=== PATIENT | female | born 1990 | race Caucasian/White ===

== ENCOUNTER → 2016-06-18 | Outpatient (CLI) | payer BC, OTHER ==
--- NOTE | 2016-06-18 09:36 | XR ---
EXAMINATION TYPE: XR Hip Complete LT DATE OF EXAM: 06/18/2016 9:32 AM COMPARISON: NONE HISTORY: Pain There is no evidence of erosive change or acute fracture. 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 Correlate for femoral acetabular impingement. Vascular calcifications in the pelvis and intrauterine device noted. Impression 1. Findings suggest chronic labral tear. Mild hypertrophic change of the head of the femur can be see n with femoral acetabular impingement.
--- NOTE | 2016-06-18 09:38 | XR ---
EXAM TYPE: LUMBAR SPINE X RAY SERIES COMPARISON: NONE HISTORY: Back pain FINDINGS: Alignment is anatomic. The pedicles are intact. The transverse processes are intact. There is no spondylolisthesis. Surgical clips in the gallbladder fossa noted. IMPRESSION: 1. No acute process.
== END | disposition home or self-care (01) ==
LOC: RADXRMAIN 09:09
PROVIDERS: ATTEND Family Medicine
DX: M25.852 Other specified joint disorders, left hip (principal); M54.5 Low back pain
CPT/HCPCS: 72100; 73502

== ENCOUNTER 2016-08-13 22:16 | Emergency (ER) | payer BC, OTHER ==
[2016-08-13 22:32] VITALS: BP 135/89; PULSE 108; RESP 20; TEMP 98.4
--- NOTE | 2016-08-13 22:48 | ED ---
ENT HPI - General Chief complaint: Dental/Oral Stated complaint: DENTAL PAIN Time Seen by Provider: 08/13/16 22:35 Source: patient, RN notes reviewed, old records reviewed Mode of arrival: ambulatory Limitations: no limitations - History of Present Illness Initial comments: Patient is a 26 year old female with chief complaint of broken right upper tooth. Patient reports she was eating a hard candy when it broke, 2 days ago. She states she is on a waiting list for seeing the dental clinic. She reports that the tooth pain is radiating around the gum line and to her entire upper teeth. Patient states pain is worse with eating cold foods. She denies any previous history of poor dentition or chipped teeth. She denies any trismus, nausea, vomiting, facial swellling. - Related Data Home Medications Medication Instructions Recorded Confirmed Dextroamphetamine/Amphetamine 20 mg PO DAILY 10/06/14 08/13/16 [Adderall] Escitalopram [Lexapro] 20 mg PO DAILY 03/23/16 08/13/16 Ferrous Sulfate [Iron (65 MG 325 mg PO DAILY 03/23/16 08/13/16 Elemental)] Previous Rx's Medication Instructions Recorded Doxycycline Hyclate 100 mg PO BID 14 Days 04/05/16 Acetaminophen-Codeine 300-30mg 1 tab PO Q4H PRN #20 tablet 08/13/16 [Tylenol #3] Penicillin V Potassium [Pen Vee K] 500 mg PO QID #40 tab 08/13/16 Allergies Allergy/AdvReac Type Severity Reaction Status Date / Time ketorolac [From Toradol] Allergy Rash/Hives Verified 04/22/16 15:04 lamotrigine [From Lamictal] Allergy Rash/Hives Verified 04/22/16 15:05 Review of Systems ROS Statement: Those systems with pertinent positive or pertinent negative responses have been documented in the HPI. ROS Other: All systems not noted in ROS Statement are negative. Past Medical History Past Medical History: Fibromyalgia, Thyroid Disorder Additional Past Medical History / Comment(s): HIP DYSPLASIA, ZHAO SYNDROME History of Any Multi-Drug Resistant Organisms: None Reported Past Surgical History: No Surgical Hx Reported, Cholecystectomy Additional Past Surgical History / Comment(s): Additional Medical Hx: Gallstones Past Psychological History: ADD/ADHD, Depression Smoking Status: Current some day smoker Past Alcohol Use History: None Reported Past Drug Use History: None Reported General Exam - General Exam Comments Initial Comments: Well appearing 26 year old female. No acute distress. Limitations: no limitations General appearance: alert, in no apparent distress Head exam: Present: atraumatic, normocephalic, normal inspection Eye exam: Present: normal appearance, PERRL, EOMI. Absent: scleral icterus, conjunctival injection, periorbital swelling ENT exam: Present: normal exam, normal oropharynx, mucous membranes moist, other (upper right molar chipped. no evidence of abscess. ) Neck exam: Present: normal inspection. Absent: tenderness, meningismus, lymphadenopathy Respiratory exam: Present: normal lung sounds bilaterally. Absent: respiratory distress, wheezes, rales, rhonchi, stridor Cardiovascular Exam: Present: regular rate, normal rhythm, normal heart sounds. Absent: systolic murmur, diastolic murmur, rubs, gallop, clicks GI/Abdominal exam: Present: soft, normal bowel sounds. Absent: distended, tenderness, guarding, rebound, rigid Extremities exam: Present: normal inspection, full ROM, normal capillary refill. Absent: tenderness, pedal edema, joint swelling, calf tenderness Back exam: Present: normal inspection Neurological exam: Present: alert, oriented X3, CN II-XII intact Psychiatric exam: Present: normal affect, normal mood Skin exam: Present: warm, dry, intact, normal color. Absent: rash Course Vital Signs 08/13/16 22:29 Temperature 98.4 F Pulse Rate 108 H Respiratory 20 Rate Blood Pressure 135/89 O2 Sat by Pulse 97 Oximetry Medical Decision Making - Medical Decision Making Patient is a 26 year old female with broken right upper molar for 2 days. She plans to see dental clinic but is unable to see them until September. Patient reports that she has pain radiating from the tooth to the entire upper teeth. Patient given tylenol 3, and pen v k starter pack. Patient will be given Rx for both. I advised patient to get in to a dental clinic sooner and to return if worsening signs or symptoms occur. Patient understands treatment plan and will comply. Disposition Clinical Impression: Pain, dental, Broken tooth Disposition: HOME SELF-CARE Condition: Good Instructions: Toothache (ED) Additional Instructions: Patient advised to follow-up with dental clinic. Completely anabiotic prescription. Take pain medications as prescribed. Return to the emergency department if any alarming signs or symptoms occur. [facility] [address], [place] [address] [phone] (existing clients only) For new clients: [phone] 1st consult: $50 (includes Xrays) Usually 30% less then private dentist for visits after. [employer] Have to pay $50 for Xrays anmd rest is covered. [phone] Prescriptions: Acetaminophen-Codeine 300-30mg [Tylenol #3] 1 tab PO Q4H PRN #20 tablet PRN Reason: Pain Penicillin V Potassium [Pen Vee K] 500 mg PO QID #40 tab Referrals: Demarcus Flores MD [Primary Care Provider] - 1-2 days Time of Disposition: 22:47
[2016-08-13] MEDS ORDERED: ACET/COD 300 MG/30 MG STARTER PACK 6 TAB BTL PO STA (23:05)
[2016-08-13] MEDS ORDERED: PENICILLIN VK 500MG STARTER 4 TAB BTL PO STA (23:05)
== END 2016-08-13 23:30 | disposition home or self-care (01) ==
LOC: EC 22:16
DX: S02.5XXA Fracture of tooth (traumatic), initial encounter for closed fracture (principal); F32.9 Major depressive disorder, single episode, unspecified; F90.9 Attention-deficit hyperactivity disorder, unspecified type; F17.200 Nicotine dependence, unspecified, uncomplicated; Z79.899 Other long term (current) drug therapy; Z88.6 Allergy status to analgesic agent; Z88.8 Allergy status to other drugs, medicaments and biological substances
CPT/HCPCS: 99283

== ENCOUNTER → 2016-12-21 | Outpatient (CLI) | payer SELFPAY | END | disposition home or self-care (01) | LOC: MMGSC 16:39 | PROVIDERS: ATTEND Family Medicine | DX: N93.9 Abnormal uterine and vaginal bleeding, unspecified (principal) | CPT/HCPCS: 87070; 87075; 87205 ==

== ENCOUNTER → 2017-03-04 | Outpatient (CLI) | payer SELFPAY ==
[2017-03-04 21:22] LABS: Basophils % (A) 1 %; CH 31.5; CHCM 33.2; Eosinophils # (A) 0.1 k/uL (0-0.7); Eosinophils % (A) 1 %; HCT 41.9 % (34.0-46.0); HDW 2.25; HGB 13.8 gm/dL (11.4-16.0); Luc % (Auto) 2; Lymphocytes # (A) 2.2 k/uL (1.0-4.8); Lymphocytes % (A) 33 %; MCH 31.3 pg (25.0-35.0); MCHC 32.9 g/dL (31.0-37.0); MCV 95.2 fL (80.0-100.0); Mean Platelet Volume 7.5; Monocytes # (A) 0.5 k/uL (0-1.0); Monocytes % (A) 7 %; Neutrophils # (A) 3.8 k/uL (1.3-7.7); Neutrophils % (A) 57 %; RDW 13.1 % (11.5-15.5); WBC 6.6 k/uL (3.8-10.6); WBC (Perox) 7.37
[2017-03-04 22:16] LABS: ALT 33 U/L (9-52); AST 27 U/L (14-36); Alkaline Phosphatase 59 U/L (38-126); Anion Gap 10 mmol/L; Blood Urea Nitrogen 11 mg/dL (7-17); Calcium 9.8 mg/dL (8.4-10.2); Carbon Dioxide 23 mmol/L (22-30); Chloride 105 mmol/L (98-107); Cholesterol 172 mg/dL (<200); Glucose 96 mg/dL (74-99); HDL Cholesterol 56 mg/dL (40-60); Non-African American GFR(MDRD) >60 (>60 ml/min/1.73 sqM); Sodium 138 mmol/L (137-145); Total Bilirubin 0.5 mg/dL (0.2-1.3); Total Protein 7.1 g/dL (6.3-8.2)
== END | disposition home or self-care (01) ==
LOC: MMGSC 10:19
PROVIDERS: ATTEND Family Medicine
DX: Z00.00 Encounter for general adult medical examination without abnormal findings (principal); B76.9 Hookworm disease, unspecified
CPT/HCPCS: 36415; 80053; 80061; 84439; 84443; 85025

== ENCOUNTER → 2017-05-27 | Outpatient (CLI) | payer OTHER ==
[2017-05-27 18:29] LABS: Basophils % (A) 0 %; CH 28.3; CHCM 31.1; Eosinophils # (A) 0.1 k/uL (0-0.7); Eosinophils % (A) 2 %; HCT 36.8 % (34.0-46.0); HGB 11.2 gm/dL (11.4-16.0); Hypochromasia Moderate; Luc # (Auto) 0.11; Luc % (Auto) 2; Lymphocytes # (A) 2.3 k/uL (1.0-4.8); Lymphocytes % (A) 34 %; MCHC 30.5 g/dL (31.0-37.0); MCV 91.6 fL (80.0-100.0); Mean Platelet Volume 7.5; Monocytes # (A) 0.5 k/uL (0-1.0); Monocytes % (A) 7 %; Neutrophils # (A) 3.8 k/uL (1.3-7.7); Neutrophils % (A) 56 %; RBC 4.02 m/uL (3.80-5.40); RDW 13.5 % (11.5-15.5); WBC 6.7 k/uL (3.8-10.6); WBC (Perox) 7.25
[2017-05-28 01:13] LABS: Iron Saturation 8.36 (12.00-45.00)
== END ==
LOC: MMGSC 11:43
PROVIDERS: ATTEND Family Medicine
DX: D64.9 Anemia, unspecified (principal)
CPT/HCPCS: 36415; 82728; 83540; 83550; 85025

== ENCOUNTER → 2017-10-05 | Outpatient (CLI) | payer OTHER ==
[2017-10-05 12:19] VITALS: BP 120/73; PULSE 83; RESP 18; TEMP 99.2
--- NOTE | 2017-10-05 21:27 | P.PAINCN ---
History of Present Illness - Reason for Consult Consult date: 10/05/17 - History of Present Illness This is 27 years old female with a chronic history of severe bilateral hip pain , but this more intense in the right side, she was diagnosed with bilateral hip dysplasia, which required her to have physical therapy and later on she had surgery on her right hip, which was done at [facility], more than a year ago, and she was told by her orthopedic surgeon and that she needs a hip replacement, but she is too young to have the hip replacement at this age, and areas can be done , when she is 35 years old, currently she is complaining of severe pain in the right hip which is increased with any activity or walking and bending sitting and standing, all these activities will increase her pain her pain level baselining is 5-6/10 increased with any activity to 8/10, she denies any fever or night sweats she denies any motor or sensory deficit, she denies any change in the bowel movement or urination,, she had pain management interventions done at [facility], which was complicated by motor weakness after the procedure and increased pain after the procedure, and she is currently trying to find if there is any interventional pain management option can help to improve her pain Past Medical History Past Medical History: Fibromyalgia, Thyroid Disorder Additional Past Medical History / Comment(s): HIP DYSPLASIA, ZHAO SYNDROME History of Any Multi-Drug Resistant Organisms: None Reported Past Surgical History: Orthopedic Surgery Additional Past Surgical History / Comment(s): kidney stone with stent. Additional Medical Hx: Gallstones/TRISH RT HIP 04/23 Past Psychological History: ADD/ADHD, Depression Smoking Status: Current some day smoker Past Alcohol Use History: None Reported Past Drug Use History: None Reported Medications and Allergies Home Medications Medication Instructions Recorded Confirmed Type Dextroamphetamine/Amphetamine 20 mg PO BID 10/06/14 10/05/17 History [Adderall] Escitalopram [Lexapro] 10 mg PO DAILY 03/23/16 10/05/17 History Ferrous Sulfate [Iron (65 MG 325 mg PO HS 03/23/16 10/05/17 History Elemental)] Hydrocodone/Acetaminophen [Fairchild 1 tab PO QID PRN 05/30/17 10/05/17 History 10-325] Celecoxib [CeleBREX] 100 mg PO BID #60 cap 10/05/17 Rx Gabapentin [Neurontin] 300 mg PO HS 10/05/17 10/05/17 History Multivitamin [Multivitamins Adult 1 tab PO DAILY 10/05/17 10/05/17 History Gummies] S-Adenosylmethionine Sul Tosyl 200 mg PO DAILY 10/05/17 10/05/17 History [Zach-E] Allergies Allergy/AdvReac Type Severity Reaction Status Date / Time codeine Allergy Rash/Hives Verified 10/05/17 12:08 ketorolac [From Toradol] Allergy Rash/Hives Verified 05/30/17 22:02 lamotrigine [From Lamictal] Allergy Rash/Hives Verified 05/30/17 22:02 Physical Exam Vitals: Vital Signs Temp Pulse Resp BP Pulse Ox 10/05/17 12:08 99.2 F 83 18 120/73 98 Intake and Output 10/05/17 10/05/17 10/05/17 06:59 14:59 22:59 Other: Weight 58.967 kg Social history : smoker , NO ETOH , NO Illegal drugs use . Review of Systems : 1- Constitutional : no chills , no fever , no night sweats , 2- Ears : no ear discharge , no change in hearing 3-Nose, Mouth ,Throat ; no bleeding gums, no sore throat , no epistaxis , 4-Cardiovascular : Denies chest pain, , no orthopnea , no palpitation 5-Respiratory : Denies cough , no dyspnea , no hemoptysis 6-Gastrointestinal :, no change in bowel habits , no coffee- ground emesis . 7-Genitourinary : No hematuria , no discharge , no incontinence, 8-Musculoskeletal : No gait dysfunction , report low back pain , 9- Neurological : no ataxia , no tremor , no sezure , 10-Psychatric , no suicidal ideation no hallucination 11- Endocrine : no cold intolerence , no polyuria , no polydypsia , 12-Hematologic : no easy bleeding , no easy brusing , 13-Allergic / immunology : no angioedema , no wheezing ,no allergic rhinitis 14-Integumentary : no brttle nails , no change hair / nails , no foot/leg ulcers . Physical Examinations : 1-Constitutional : Cooperative , not in acute distress . 2-HEENT : nech ; supple , no Lymphadenopathy , no Thyromegaly , :eyes , no icterus, no photophobia . ENT : , normal oropharynx , no Thrush 3- Respiratory : Chest clear to auscultations Bilaterally , no wheezing . 4- Cardiovascular : regular rate and rhythem , S1 , S2 , no S3 , no S4. 5- Gastrointestinal: abdomen soft no tenderness , no organomegally . 6- Genitourinary : Defferred . 7-Integumentary : No cellulitis , no ulcers , normal skin turgor , no cyanotic . 8- neurologic : Cranial nerve II to XII intact , no focal neurological deffecit 9-psychatric : alert , oriented X 3 , appropriate affect , intact judgment and insight . 10-Lymphatic : no Lymphadenopathy. 11- musculoskeltal: abnormal gait Lumber spine moter stegnth lower extremities ,thigh and legs 5/5 Right side , 5/5 Left side deep tendon reflexes : normal Knee Jerk , normal ankle Jerk positive lumber facet Loading Test Range of motion of the lumbar spine Flexion 60 degrees, extension 10 degrees strait leg raising test , positive at 30 degree Fabere test positive RT and positive LT . Hip joint= flexion and extension and rotation of the femur the hip joint area associated with severe pain at the hip joint more severe at the right side Results Comments: MRI of the lumbar spine lumbar disc protrusion and lumbar facet arthropathy. diagnostic study of the hip joint , chronic labral tear, and hypertrophic changes of the femur head Assessment and Plan Plan: Assessment and plan= chronic bilateral hip pain and more severe on the right side secondary to hip dysplasia. Patient continued to have pain after right hip surgery, Patient will be good candidate to have right hip injection will do with twice, if she had a good resulte, then we will consider radiofrequency of the right hip joint , recommend discontinue Motrin, patient currently taking 800 mg every 6 hours, it will be safer on her stomach to change it to Celebrex 100 milligrams twice a day Time with Patient: Greater than 30 PQRS Measure Charge Sheet Measure #130: Documentation of Current Meds in Medical Chart: Patient's medications documented in chart Measure #226: Tobacco Use: Screen & Cessation Intervention: Pt screened for tobacco use AND intervention given Measure #111: Pneumonia Vaccination: Pneumococcal vaccine NOT administered or previously given Measure #47: Advance Care Plan: Advance care planning discussed & documented, plan or surrogate given Measure #412: Opioid Treatment Agreement: No documentation of signed opioid treatment agreement Measure #408: Opioid Therapy Follow-up Evaluation: Patient had NO f/u eval minimum every 3 months during opioid therapy Measure #317: Preventitive Care & Scrn High Bld Press & F/U: Normal blood pressure, f/u not required Measure #128: Body Mass Index (BMI) Screening & Follow-up: BMI documented within normal parameters Measure #131: Pain Assessment & Follow-up: Pain positive & plan documented, Follow-up scheduled Measure #431: Unhealthy Alcohol Use Preventative Care & Scrn: Patient not identified as an unhealthy alcohol user PQRS Narrative: Smoking Status Current some day smoker Do You Want the Pneumonia No Vaccine AT THIS TIME? Blood Pressure 120/73 Pain Intensity [Bilateral Hip] 3 Hx Alcohol Use (MH) No Home Medications: Ambulatory Orders Dextroamphetamine/Amphetamine [Adderall] 20 mg PO BID 10/06/14 Escitalopram [Lexapro] 10 mg PO DAILY 03/23/16 Ferrous Sulfate [Iron (65 MG Elemental)] 325 mg PO HS 03/23/16 Hydrocodone/Acetaminophen [Fairchild 10-325] 1 tab PO QID PRN 05/30/17 Celecoxib [CeleBREX] 100 mg PO BID #60 cap 10/05/17 Gabapentin [Neurontin] 300 mg PO HS 10/05/17 Multivitamin [Multivitamins Adult Gummies] 1 tab PO DAILY 10/05/17 S-Adenosylmethionine Sul Tosyl [Zach-E] 200 mg PO DAILY 10/05/17
== END | disposition home or self-care (01) ==
LOC: PNWHC3 11:54
PROVIDERS: ATTEND Specialist
DX: G89.28 Other chronic postprocedural pain (principal); M25.552 Pain in left hip; M25.551 Pain in right hip; Q65.89 Other specified congenital deformities of hip; M79.7 Fibromyalgia; I49.8 Other specified cardiac arrhythmias; F90.1 Attention-deficit hyperactivity disorder, predominantly hyperactive type; F17.200 Nicotine dependence, unspecified, uncomplicated; Z79.891 Long term (current) use of opiate analgesic; Z79.899 Other long term (current) drug therapy; Z88.5 Allergy status to narcotic agent; Z88.6 Allergy status to analgesic agent; Z79.1 Long term (current) use of non-steroidal anti-inflammatories (NSAID); Z98.890 Other specified postprocedural states
CPT/HCPCS: 99211

== ENCOUNTER 2017-11-17 23:10 | Emergency (ER) | payer OTHER ==
[2017-11-18] MEDS ORDERED: HYDROcodone/APAP 5-325MG 1 EACH TAB PO STA (00:11)
--- NOTE | 2017-11-18 00:25 | ED ---
Lower Extremity Injury HPI - General Chief Complaint: Extremity Injury, Lower Stated Complaint: Fall, hip pain Time Seen by Provider: 11/17/17 23:43 Source: patient Mode of arrival: wheelchair Limitations: no limitations - History of Present Illness Initial Comments: 27-year-old female patient with past medical history significant for hip dysplasia with surgery approximately one year ago to the right hip presents to the emergency department today for evaluation of right hip pain after a fall. Patient states that she got up from the couch and tripped over a ball and fell landing on the right hip. She denies hitting her head or losing consciousness. She states that since the fall she has been having significant pain to the hip and has been unable to ambulate. When she attempts to bear weight pain will shoot down to her knee. Patient states that the pain also radiates into her back and groin. She denies any numbness or tingling to the extremity. She denies any loss of bowel or bladder control. She denies any chance of . Patient denies any headache, neck pain, chest pain, shortness of breath, dizziness, weakness, abdominal pain, nausea, vomiting, or difficulties with bowel movements or urination. - Related Data Home Medications Medication Instructions Recorded Confirmed Ferrous Sulfate [Iron (65 MG 325 mg PO HS 03/23/16 11/17/17 Elemental)] Multivitamin [Multivitamins Adult 1 tab PO DAILY 10/05/17 11/17/17 Gummies] Ibuprofen 800 mg PO TID 11/17/17 11/17/17 OXcarbazepine [Trileptal] 300 mg PO BID 11/17/17 11/17/17 Vortioxetine Hydrobromide 20 mg PO DAILY 11/17/17 11/17/17 [Trintellix] Previous Rx's Medication Instructions Recorded Hydrocodone/Acetaminophen [Buckingham 1 tab PO Q6HR PRN #12 tab 11/18/17 5-325] Allergies Allergy/AdvReac Type Severity Reaction Status Date / Time codeine Allergy Rash/Hives Verified 10/05/17 12:08 ketorolac [From Toradol] Allergy Rash/Hives Verified 05/30/17 22:02 lamotrigine [From Lamictal] Allergy Rash/Hives Verified 05/30/17 22:02 Review of Systems ROS Statement: Those systems with pertinent positive or pertinent negative responses have been documented in the HPI. ROS Other: All systems not noted in ROS Statement are negative. Past Medical History Past Medical History: Fibromyalgia, Thyroid Disorder Additional Past Medical History / Comment(s): HIP DYSPLASIA, ZHAO SYNDROME History of Any Multi-Drug Resistant Organisms: None Reported Past Surgical History: Orthopedic Surgery Additional Past Surgical History / Comment(s): kidney stone with stent. Additional Medical Hx: Gallstones/TRISH RT HIP 04/23 Past Psychological History: ADD/ADHD, Depression Smoking Status: Current some day smoker Past Alcohol Use History: None Reported Past Drug Use History: None Reported General Exam Limitations: no limitations General appearance: alert, in no apparent distress, other (This is a well- developed, well-nourished adult female patient in no acute distress. Vital signs upon presentation are temperature 98.6F, pulse 86, respirations 18, blood pressure 127/83, pulse ox 98% on room air.) Eye exam: Present: normal appearance, PERRL, EOMI. Absent: scleral icterus, conjunctival injection, periorbital swelling Neck exam: Present: normal inspection, full ROM, other (Nontender, no step-off, no deformity to firm midline palpation of the posterior cervical spine. Full range of motion without pain or limitation.). Absent: tenderness, meningismus, lymphadenopathy Respiratory exam: Present: normal lung sounds bilaterally. Absent: respiratory distress, wheezes, rales, rhonchi, stridor Cardiovascular Exam: Present: regular rate, normal rhythm, normal heart sounds. Absent: systolic murmur, diastolic murmur, rubs, gallop, clicks GI/Abdominal exam: Present: soft, normal bowel sounds. Absent: distended, tenderness, guarding, rebound, rigid Extremities exam: Present: normal inspection, full ROM, tenderness (Tenderness over the right hip and right groin), normal capillary refill, other (Skin to the right lower extremity is pink, warm, and dry. Cap refills less than 3 seconds. Pedal pulses 2+ and equal bilaterally.). Absent: pedal edema, joint swelling, calf tenderness Back exam: Present: normal inspection. Absent: vertebral tenderness Neurological exam: Present: alert, oriented X3, CN II-XII intact Psychiatric exam: Present: normal affect, normal mood Skin exam: Present: warm, dry, intact, normal color. Absent: rash Course Vital Signs 11/17/17 11/18/17 23:27 01:44 Temperature 98.6 F 98.2 F Pulse Rate 86 71 Respiratory 18 16 Rate Blood Pressure 127/83 126/58 O2 Sat by Pulse 98 100 Oximetry Medical Decision Making - Medical Decision Making 27-year-old female patient presents the emergency department today for evaluation of right hip pain after experiencing a fall. Physical examination is relatively unremarkable she does have some groin and right lateral hip tenderness. Her vascular status is intact. She is not experiencing any loss of bowel or bladder control or numbness or tingling to the lower extremities. X -ray of the right hip and pelvis were obtained and showed no acute findings. X- ray of the lumbosacral spine was obtained and showed no acute findings. Patient will be given pain medication and a prescription for crutches. It is likely her symptoms are caused from a hip strain as she does report a twisting motion during the fall. We will have her follow-up with her orthopedic surgeon at [facility] for further evaluation. Return parameters discussed in detail. She verbalizes understanding and agrees with this plan. - Radiology Data Radiology results: report reviewed, image reviewed 3 views of the hip and one view of the elbows is obtained. The pelvic ring is intact. There are multiple screws fixing old osteotomy of the right acetabulum. The proximal femurs are intact. Sacroiliac joints appear normal. There are numerous phleboliths in the pelvis. Impression by Dr. Dumont shows previous surgery on the right acetabulum and right iliac bone. Normal hip joint spaces. No fracture. No change compared to old exam. 5 views of the lumbosacral spine are obtained. Vertebra abnormal spacing alignment. Posterior elements are intact. There is no compression fracture. Sacroiliac joints appear normal. Impression by Dr. Dumont shows normal lumbar spine. No change. Disposition Clinical Impression: Strain of right hip Disposition: HOME SELF-CARE Condition: Good Instructions: Hip Pain (ED), Hip Contusion (ED) Additional Instructions: Rest and apply ice to the right hip. Follow-up with your orthopedic surgeon as soon as possible. Use crutches until you're able to bear weight. Return here immediately for any new, worsening, or concerning symptoms. Prescriptions: Hydrocodone/Acetaminophen [Buckingham 5-325] 1 tab PO Q6HR PRN #12 tab PRN Reason: Pain Is patient prescribed a controlled substance at d/c from ED?: No Referrals: Mayela Erwin MD [Primary Care Provider] - 1-2 days Time of Disposition: 01:24
--- NOTE | 2017-11-18 00:49 | XR ---
EXAMINATION TYPE: XR Hip RT and AP Pelvis DATE OF EXAM: 11/18/2017 COMPARISON: 05/30/2017 HISTORY: Right hip pain TECHNIQUE: 3 views of the pelvis and right hip. FINDINGS: The pelvic ring is intact. There are multiple screws fixing old osteotomy of the right acetabulum. Th e proximal femurs are intact. Sacroiliac joints appear normal. There are numerous phleboliths in the pelvis. IMPRESSION: Previous surgery on the right acetabulum and right iliac bone. Normal hip joint spaces. No fracture. No change compared to old exam.
--- NOTE | 2017-11-18 00:51 | XR ---
EXAMINATION TYPE: XR lumbosacral spine min 4V DATE OF EXAM: 11/18/2017 COMPARISON: 06/18/2016 HISTORY: Back pain TECHNIQUE: 5 views FINDINGS: Vertebra have normal spacing and alignment. Posterior elements are intact. There is no comp ression fracture. Sacroiliac joints appear normal. IMPRESSION: Normal lumbar spine. No change.
[2017-11-18 01:46] VITALS: BP 126/58; PULSE 71; RESP 16; TEMP 98.2
== END 2017-11-18 01:46 | disposition home or self-care (01) ==
LOC: EC 23:10
DX: S76.011A Strain of muscle, fascia and tendon of right hip, initial encounter (principal); M79.7 Fibromyalgia; F32.9 Major depressive disorder, single episode, unspecified; F17.200 Nicotine dependence, unspecified, uncomplicated; Z88.5 Allergy status to narcotic agent; Z88.8 Allergy status to other drugs, medicaments and biological substances; Z79.1 Long term (current) use of non-steroidal anti-inflammatories (NSAID); Z79.899 Other long term (current) drug therapy; W01.198A Fall on same level from slipping, tripping and stumbling with subsequent striking against other object, initial encounter
CPT/HCPCS: 72110; 73502; 99283

== ENCOUNTER 2018-02-19 18:34 | Emergency (ER) | payer OTHER ==
--- NOTE | 2018-02-19 19:34 | ED ---
General Adult HPI - General Chief complaint: Chest Pain Stated complaint: CHEST PAIN, ABDOMINAL PAIN Time Seen by Provider: 02/19/18 18:54 Source: patient, EMS Mode of arrival: EMS Limitations: no limitations - History of Present Illness Initial comments: Patient is a 27-year-old female who presents with a chief complaint of cough and chest pain. Patient has been dealing with a cold and was recently diagnosed with bronchitis for which she is taking azithromycin. Patient says that he took her azithromycin today and now she is having ALLERGIC reaction because she started having chest palpitations and sharp pains. She went to urgent care where an EKG was performed. They stated the EKG was not normal and that she should go to the emergency department for further evaluation. In the emergency department patient states that she also gets dizzy when she sits or stands up. She has a medical history of hypokalemia for which she has been taking potassium supplementation for. Patient denies any long trips or periods of inactivity, she denies the use of control. She denies a family or personal history of blood clots. - Related Data Home Medications Medication Instructions Recorded Confirmed Ferrous Sulfate [Iron (65 MG 325 mg PO HS 03/23/16 11/17/17 Elemental)] Multivitamin [Multivitamins Adult 1 tab PO DAILY 10/05/17 11/17/17 Gummies] Ibuprofen 800 mg PO TID 11/17/17 11/17/17 OXcarbazepine [Trileptal] 300 mg PO BID 11/17/17 11/17/17 Vortioxetine Hydrobromide 20 mg PO DAILY 11/17/17 11/17/17 [Trintellix] Previous Rx's Medication Instructions Recorded Hydrocodone/Acetaminophen [[place] 1 tab PO Q6HR PRN #12 tab 11/18/17 5-325] Doxycycline Monohydrate 100 mg PO BID #10 cap 02/19/18 [Vibramycin] Allergies Allergy/AdvReac Type Severity Reaction Status Date / Time azithromycin Allergy Chest Pain Verified 02/19/18 18:41 codeine Allergy Rash/Hives Verified 10/05/17 12:08 ketorolac [From Toradol] Allergy Rash/Hives Verified 05/30/17 22:02 lamotrigine [From Lamictal] Allergy Rash/Hives Verified 05/30/17 22:02 Review of Systems ROS Statement: Those systems with pertinent positive or pertinent negative responses have been documented in the HPI. ROS Other: All systems not noted in ROS Statement are negative. Respiratory: Reports: cough Cardiovascular: Reports: chest pain, palpitations Past Medical History Past Medical History: Fibromyalgia, Thyroid Disorder Additional Past Medical History / Comment(s): HIP DYSPLASIA, ZHAO SYNDROME History of Any Multi-Drug Resistant Organisms: None Reported Past Surgical History: Orthopedic Surgery Additional Past Surgical History / Comment(s): kidney stone with stent. Additional Medical Hx: Gallstones/TRISH RT HIP 04/23 Past Psychological History: ADD/ADHD, Depression Smoking Status: Current some day smoker Past Alcohol Use History: None Reported Past Drug Use History: None Reported General Exam Limitations: no limitations General appearance: alert, in no apparent distress Head exam: Present: atraumatic, normocephalic Eye exam: Present: normal appearance, PERRL ENT exam: Present: normal exam, mucous membranes moist Neck exam: Present: normal inspection Respiratory exam: Present: normal lung sounds bilaterally. Absent: respiratory distress, wheezes Cardiovascular Exam: Present: regular rate, normal rhythm GI/Abdominal exam: Present: soft, tenderness (tenderness to palpation in the epigastric region ). Absent: distended Rectal exam: Present: deferred Extremities exam: Present: normal inspection Back exam: Present: normal inspection Neurological exam: Present: alert, oriented X3 Psychiatric exam: Present: normal affect, normal mood Skin exam: Present: warm, dry, intact Course Vital Signs 02/19/18 02/19/18 18:42 18:51 Temperature 98.9 F 98.8 F Pulse Rate 63 77 Respiratory 18 18 Rate Blood Pressure 102/57 102/57 O2 Sat by Pulse 100 100 Oximetry Medical Decision Making - Medical Decision Making Patient presents with a chief complaint of chest pain, cough, and epigastric pain. On initial evaluation, vital signs are stable, patient is in mild distress likely secondary to being startled when evaluated in urgent care. She was told that she had an abnormal EKG and that "she wasn't having a heart attack yet." Initial EKG performed at 1844 shows sinus rhythm with a rate of 90 bpm. There appears to be PACs present however there is concern as the QRS complexes are of varying heights. Bedside ultrasound of the heart shows no evidence of pericardial effusion. Global function appears grossly normal. There is no dilation of the right ventricle. Ejection fraction is estimated to be greater than 50%. Patient to be evaluated with basic labs including liver profile and lipase. She'll have cardiac enzymes and will be sent for a computed tomography scan of the chest with IV contrast. 9:27 PM Lab evaluation of this patient is unremarkable. Computed tomography scan of the chest does not show any acute process, further there is no evidence of pulmonary embolism. On reevaluation, the patient remains comfortable. She was given a liter of fluids and states that she feels better. Electrolytes are within normal limits, labs are otherwise unremarkable. At this time, patient will be switched to doxycycline for treatment of bronchitis and instructed to follow-up with primary care in 1-2 days. She was instructed to return to the emergency department if symptoms worsen or change. - Lab Data Result diagrams: 02/19/18 19:00 02/19/18 19:00 Lab Results 02/19/18 02/19/18 02/19/18 Range/Units 19:00 19:00 19:00 WBC 7.4 (3.8-10.6) k/uL RBC 3.91 (3.80-5.40) m/uL Hgb 11.8 (11.4-16.0) gm/dL Hct 35.7 (34.0-46.0) % MCV 91.3 (80.0-100.0) fL MCH 30.1 (25.0-35.0) pg MCHC 33.0 (31.0-37.0) g/dL RDW 12.2 (11.5-15.5) % Plt Count 257 (150-450) k/uL Neutrophils % 69 % Lymphocytes % 24 % Monocytes % 5 % Eosinophils % 1 % Basophils % 0 % Neutrophils # 5.1 (1.3-7.7) k/uL Lymphocytes # 1.8 (1.0-4.8) k/uL Monocytes # 0.4 (0-1.0) k/uL Eosinophils # 0.1 (0-0.7) k/uL Basophils # 0.0 (0-0.2) k/uL Sodium 139 (137-145) mmol/L Potassium 3.8 (3.5-5.1) mmol/L Chloride 108 H (98-107) mmol/L Carbon Dioxide 22 (22-30) mmol/L Anion Gap 9 mmol/L BUN 4 L (7-17) mg/dL Creatinine 0.45 L (0.52-1.04) mg/dL Est GFR (CKD-EPI)AfAm >90 (>60 ml/min/1.73 sqM) Est GFR (CKD-EPI)NonAf >90 (>60 ml/min/1.73 sqM) Glucose 86 (74-99) mg/dL Calcium 9.3 (8.4-10.2) mg/dL Magnesium 1.7 (1.6-2.3) mg/dL Total Bilirubin 0.2 (0.2-1.3) mg/dL AST 18 (14-36) U/L ALT 25 (9-52) U/L Alkaline Phosphatase 48 (38-126) U/L Troponin I <0.012 (0.000-0.034) ng/mL Total Protein 6.1 L (6.3-8.2) g/dL Albumin 3.7 (3.5-5.0) g/dL Lipase 148 (23-300) U/L HCG, Qual Detected Disposition Clinical Impression: Palpitations, Bronchitis Disposition: HOME SELF-CARE Condition: Good Instructions: Heart Palpitations (ED) Is patient prescribed a controlled substance at d/c from ED?: No Referrals: None,Stated [Primary Care Provider] - 1-2 days
[2018-02-19 19:52] LABS: Basophils % (A) 0 %; Eosinophils # (A) 0.1 k/uL (0-0.7); Eosinophils % (A) 1 %; HCT 35.7 % (34.0-46.0); HGB 11.8 gm/dL (11.4-16.0); Lymphocytes # (A) 1.8 k/uL (1.0-4.8); Lymphocytes % (A) 24 %; MCH 30.1 pg (25.0-35.0); MCV 91.3 fL (80.0-100.0); Mean Platelet Volume 6.6; Monocytes # (A) 0.4 k/uL (0-1.0); Monocytes % (A) 5 %; Neutrophils # (A) 5.1 k/uL (1.3-7.7); Neutrophils % (A) 69 %; Platelet Count 257 k/uL (150-450); RBC 3.91 m/uL (3.80-5.40); RDW 12.2 % (11.5-15.5); WBC 7.4 k/uL (3.8-10.6)
[2018-02-19 19:57] LABS: HCG,Qualitative Serum Detected
[2018-02-19 20:01] LABS: ALT 25 U/L (9-52); AST 18 U/L (14-36); Albumin 3.7 g/dL (3.5-5.0); Alkaline Phosphatase 48 U/L (38-126); Anion Gap 9 mmol/L; Blood Urea Nitrogen 4 mg/dL (7-17); Calcium 9.3 mg/dL (8.4-10.2); Carbon Dioxide 22 mmol/L (22-30); Chloride 108 mmol/L (98-107); Glucose 86 mg/dL (74-99); Lipase 148 U/L (23-300); Magnesium 1.7 mg/dL (1.6-2.3); Potassium 3.8 mmol/L (3.5-5.1); Sodium 139 mmol/L (137-145); Total Bilirubin 0.2 mg/dL (0.2-1.3); Total Protein 6.1 g/dL (6.3-8.2)
[2018-02-19] MEDS ORDERED: SODIUM CHLORIDE 0.9% 1,000 ML IV ONE (20:21)
--- NOTE | 2018-02-19 20:22 | CT ---
EXAMINATION TYPE: CT angio chest DATE OF EXAM: 02/19/2018 8:03 PM COMPARISON: None HISTORY: chest pain CT DLP: 158.6 mGycm Automated exposure control for dose reduction was used. CONTRAST: CTA scan of the thorax is performed with IV Contrast, patient injected with 65mL mL of Isovue 370, pu lmonary embolism protocol. There are 3-D post processed images.. FINDINGS: The lungs are clear of infiltrate. There are small emphysematous blebs at the lung apices. There is n o evidence of a pulmonary mass. There is no pleural effusion. Heart size is normal. There is no peric ardial effusion. There is normal contrast opacification of the pulmonary arteries. I see no filling d efect. There is no mediastinal adenopathy. There are no hilar masses. The bony thorax is intact. Pulm onary vascularity is normal. Thoracic aorta appears normal. There is no evidence of aneurysm or dissection. IMPRESSION: NORMAL CT ANGIOGRAM OF THE CHEST. NO EVIDENCE OF PULMONARY EMBOLISM.
[2018-02-19 22:06] VITALS: BP 111/58; PULSE 81; RESP 16; TEMP 99.3
== END 2018-02-19 22:13 | disposition home or self-care (01) ==
LOC: EC 18:34
DX: J40 Bronchitis, not specified as acute or chronic (principal); R00.2 Palpitations; F32.9 Major depressive disorder, single episode, unspecified; F17.200 Nicotine dependence, unspecified, uncomplicated; Z79.899 Other long term (current) drug therapy; Z88.1 Allergy status to other antibiotic agents; Z88.5 Allergy status to narcotic agent; Z88.6 Allergy status to analgesic agent; Z88.8 Allergy status to other drugs, medicaments and biological substances
CPT/HCPCS: 36415; 71275; 80053; 83690; 83735; 84484; 84703; 85025; 93005; 96360; 99285

== ENCOUNTER → 2018-10-24 | Outpatient (CLI) | payer OTHER ==
--- NOTE | 2018-10-24 15:51 | US ---
EXAMINATION TYPE: US kidneys/renal and bladder DATE OF EXAM: 10/24/2018 COMPARISON: US CLINICAL HISTORY: N20.0 Calculus of kidney. Left flank pain and low grade fever post laparoscopy for uterine adenomyosis. EXAM MEASUREMENTS: Right Kidney: 11.6 x 6.9 x 4.3 cm Left Kidney: 11.2 x 5.4 x 5.7 cm Post Void Residual Volume: 31.6 mL Right Kidney: inferior cortical cyst = 0.6 x 0.6 x 0.4cm . No hydronephrosis or nephrolithiasis. Left Kidney: very small hyperechoic focus (calcification) noted mid pole lateral cortex = 0.4 x 0.2 x 0.2cm . No hydronephrosis or nephrolithiasis. Bladder: wnl Bilateral Jets seen: yes Normal Post Void Residual: yes IMPRESSION: 1. Nonobstructing left renal calculus. 2. 6 mm hypoechoic nodule right kidney too small to characterize.
== END | disposition home or self-care (01) ==
LOC: RADUSWWP 14:52
PROVIDERS: ATTEND Urology
DX: N20.0 Calculus of kidney (principal); N28.89 Other specified disorders of kidney and ureter
CPT/HCPCS: 76770

== ENCOUNTER → 2019-06-27 | Outpatient (CLI) | payer OTHER ==
--- NOTE | 2019-06-27 16:05 | US ---
EXAMINATION TYPE: US thyroid st tissue head/neck DATE OF EXAM: 06/27/2019 COMPARISON: US May 10 2012 CLINICAL HISTORY: E05.90 thyrotoxicosis. Follow up thyroid nodules, difficulty swallowing GLAND SIZE: Right Lobe: 5.8 x 1.7 x 1.6 cm Overall Parenchyma: mildly heterogeneous Left Lobe: 5.6 x 1.6 x 1.3 cm Overall Parenchyma: mildly heterogeneous Isthmus Thickness: 0.5 cm NODULES RIGHT: # of nodules measured on right: 0 LEFT: # of nodules measured on left: 0 ISTHMUS: # of nodules measured in the isthmus: 1 1. 0.5 X 0.4 x 0.5 cm hypoechoic mixed nodule at the mid isthmus with well-defined margins. This no dule is wider than tall and shows no intranodular vascularity. Prior size: 0.7 x 0.4 x 0.4 cm Bilateral neck scanned, no evidence of lymphadenopathy. Enlarged mildly heterogeneous gland with small isthmus nodules described above. Heterogeneous thyroid slightly prominent in size with fairly stable subcentimeter isthmus nodule. IMPRESSION: Overall stable findings, no new greater than 1 cm thyroid nodule.
== END | disposition home or self-care (01) ==
LOC: RADUSWWP 15:04
PROVIDERS: ATTEND Family Medicine
DX: E04.1 Nontoxic single thyroid nodule (principal); E05.90 Thyrotoxicosis, unspecified without thyrotoxic crisis or storm
CPT/HCPCS: 76536

== ENCOUNTER 2021-05-18 20:53 | Emergency (ER) | payer OTHER ==
[2021-05-18 21:47] VITALS: RESP 20; TEMP 98.8
[2021-05-18] MEDS ORDERED: SODIUM CHLORIDE 0.9% 50 ML IVPB ONE (22:45)
[2021-05-18] MEDS ORDERED: BAMLANIVIMAB (EUA) 700 MG, ETESEVIMAB (EUA) 1,400 MG in SODIUM CHLORIDE 0.9% 50 ML IVPB ONE (23:00)
--- NOTE | 2021-05-18 23:23 | ED ---
URI HPI - General Chief Complaint: Upper Respiratory Infection Stated Complaint: covid positive Time Seen by Provider: 05/18/21 22:04 Source: patient Mode of arrival: ambulatory Limitations: no limitations - History of Present Illness MD Complaint: cough, nasal congestion -: days(s) Severity: mild Consistency: constant Improves With: nothing Worsens With: nothing Associated Symptoms: fever, chills, myalgias, headache, nasal congestion, cough - Related Data Home Medications Medication Instructions Recorded Confirmed Ferrous Sulfate [Iron (65 MG 325 mg PO HS 03/23/16 11/17/17 Elemental)] Multivitamin [Multivitamins Adult 1 tab PO DAILY 10/05/17 11/17/17 Gummies] Ibuprofen 800 mg PO TID 11/17/17 11/17/17 OXcarbazepine [Trileptal] 300 mg PO BID 11/17/17 11/17/17 Vortioxetine Hydrobromide 20 mg PO DAILY 11/17/17 11/17/17 [Trintellix] Previous Rx's Medication Instructions Recorded Hydrocodone/Acetaminophen [[place] 1 tab PO Q6HR PRN #12 tab 11/18/17 5-325] Doxycycline [Vibramycin] 100 mg PO BID #10 cap 02/19/18 Allergies Allergy/AdvReac Type Severity Reaction Status Date / Time azithromycin Allergy Chest Pain Verified 05/18/21 21:44 codeine Allergy Rash/Hives Verified 05/18/21 21:44 ketorolac [From Toradol] Allergy Rash/Hives Verified 05/18/21 21:44 lamotrigine [From Lamictal] Allergy Rash/Hives Verified 05/18/21 21:44 Review of Systems ROS Statement: Those systems with pertinent positive or pertinent negative responses have been documented in the HPI. ROS Other: All systems not noted in ROS Statement are negative. Constitutional: Reports: fever, chills. Denies: weakness Respiratory: Reports: cough. Denies: dyspnea, wheezes, hemoptysis Cardiovascular: Denies: chest pain, palpitations, orthopnea Gastrointestinal: Denies: abdominal pain, vomiting, diarrhea Genitourinary: Denies: dysuria, hematuria Musculoskeletal: Denies: back pain Skin: Denies: rash Neurological: Denies: headache, weakness, numbness Past Medical History Past Medical History: Fibromyalgia, Thyroid Disorder Additional Past Medical History / Comment(s): HIP DYSPLASIA, ZHAO SYNDROME History of Any Multi-Drug Resistant Organisms: None Reported Past Surgical History: Orthopedic Surgery Additional Past Surgical History / Comment(s): kidney stone with stent. Mio tional Medical Hx: Gallstones/TRISH RT HIP 04/23 Past Psychological History: ADD/ADHD, Depression Smoking Status: Current some day smoker Past Alcohol Use History: None Reported Past Drug Use History: None Reported General Exam Limitations: no limitations General appearance: alert, in no apparent distress Head exam: Present: atraumatic, normocephalic Eye exam: Present: normal appearance. Absent: scleral icterus, conjunctival injection Respiratory exam: Present: normal lung sounds bilaterally. Absent: respiratory distress, wheezes, rales, rhonchi, stridor Cardiovascular Exam: Present: regular rate, normal rhythm, normal heart sounds. Absent: systolic murmur, diastolic murmur, rubs, gallop GI/Abdominal exam: Present: soft. Absent: distended, tenderness, guarding, rebound, rigid, mass Extremities exam: Present: normal inspection, normal capillary refill. Absent: pedal edema, calf tenderness Back exam: Present: normal inspection Neurological exam: Present: alert Skin exam: Present: warm, dry, intact, normal color. Absent: rash Course Vital Signs 05/18/21 21:44 Temperature 98.8 F Pulse Rate 96 Respiratory 20 Rate Blood Pressure 111/79 O2 Sat by Pulse 97 Oximetry Medical Decision Making - Lab Data Lab Results 05/18/21 Range/Units 21:50 Coronavirus (PCR) Detected A (Not Detectd) Disposition Clinical Impression: COVID-19 Disposition: HOME SELF-CARE Condition: Good Instructions (If sedation given, give patient instructions): Coronavirus Disease 2019 (COVID-19) Is patient prescribed a controlled substance at d/c from ED?: No Referrals: Tomasa Willard MD [Primary Care Provider] - 1-2 days
[2021-05-19] MEDS ORDERED: ACETAMINOPHEN TAB 325 MG TAB PO STA (00:15)
[2021-05-19 01:49] VITALS: BP 142/84; PULSE 74
== END 2021-05-19 01:48 | disposition home or self-care (01) ==
LOC: EC 20:53
DX: U07.1 COVID-19 (principal); E07.9 Disorder of thyroid, unspecified; F90.9 Attention-deficit hyperactivity disorder, unspecified type; F32.9 Major depressive disorder, single episode, unspecified; F17.200 Nicotine dependence, unspecified, uncomplicated; M79.7 Fibromyalgia; Z88.5 Allergy status to narcotic agent; Z88.1 Allergy status to other antibiotic agents
CPT/HCPCS: 99284; M0245; 87635

== ENCOUNTER 2021-07-10 06:50 | Emergency (ER) | payer OTHER ==
[2021-07-10] MEDS ORDERED: IBUPROFEN 600 MG TAB PO STA (07:12)
[2021-07-10] MEDS ORDERED: diphenhydrAMINE 50 MG/ML 1 ML VIAL IVP STA (07:12)
[2021-07-10 07:47] LABS: Basophils % (A) 1 %; Eosinophils # (A) 0.1 k/uL (0-0.7); Eosinophils % (A) 1 %; HCT 38.1 % (34.0-46.0); Lymphocytes # (A) 3.9 k/uL (1.0-4.8); Lymphocytes % (A) 44 %; MCH 30.9 pg (25.0-35.0); MCV 90.8 fL (80.0-100.0); Mean Platelet Volume 6.6; Monocytes # (A) 0.4 k/uL (0-1.0); Monocytes % (A) 5 %; Neutrophils # (A) 4.3 k/uL (1.3-7.7); Neutrophils % (A) 48 %; Platelet Count 401 k/uL (150-450); RDW 11.9 % (11.5-15.5); WBC 8.9 k/uL (3.8-10.6)
--- NOTE | 2021-07-10 07:53 | ED ---
General Adult HPI - General Chief complaint: Extremity Problem,Nontraumatic Stated complaint: L leg pain/swelling Time Seen by Provider: 07/10/21 07:04 Source: patient, RN notes reviewed Mode of arrival: ambulatory Limitations: no limitations - History of Present Illness Initial comments: 31-year-old female presents emergency Department chief complaint of leg pain. Patient states started left leg pain states feels swollen, redness of the medial aspect of her knee, pain. She states that she received dexamethasone at her work and which she started having burning sensation in her legs, very itchy bilateral legs now. Patient states pain is worsened that she has a history of hip dysplasia. Patient denies any fevers chills she did have COVID-19 in May. Patient was advised take Benadryl as she may have had a reaction from the injection. Patient has no chest pain or shortness of breath. She has no history of clots. - Related Data Home Medications Medication Instructions Recorded Confirmed Dextroamphetamine/Amphetamine 5 mg PO DAILY@1500 07/10/21 07/10/21 [Adderall] Dextroamphetamine/Amphetamine 15 mg PO BID@0700,1500 07/10/21 07/10/21 [Adderall] Vilazodone HCl [Viibryd] 40 mg PO DAILY 07/10/21 07/10/21 lamoTRIgine [LaMICtal] 25 mg PO DAILY 07/10/21 07/10/21 lamoTRIgine [LaMICtal] 100 mg PO DAILY 07/10/21 07/10/21 Previous Rx's Medication Instructions Recorded hydrOXYzine HCL [Atarax] 25 mg PO TID PRN #15 tab 07/10/21 Allergies Allergy/AdvReac Type Severity Reaction Status Date / Time codeine Allergy Rash/Hives Verified 07/10/21 08:06 ketorolac [From Toradol] Allergy Rash/Hives Verified 07/10/21 08:06 lamotrigine [From Lamictal] Allergy Unknown Verified 07/10/21 08:06 azithromycin AdvReac Chest Pain Verified 07/10/21 08:06 Review of Systems ROS Statement: Those systems with pertinent positive or pertinent negative responses have been documented in the HPI. ROS Other: All systems not noted in ROS Statement are negative. Past Medical History Past Medical History: Fibromyalgia, Thyroid Disorder Additional Past Medical History / Comment(s): HIP DYSPLASIA, ZHAO SYNDROME History of Any Multi-Drug Resistant Organisms: None Reported Past Surgical History: Orthopedic Surgery Additional Past Surgical History / Comment(s): kidney stone with stent. Additional Medical Hx: Gallstones/TRISH RT HIP 04/23 Past Psychological History: ADD/ADHD, Depression Smoking Status: Current some day smoker Past Alcohol Use History: None Reported Past Drug Use History: None Reported General Exam General appearance: alert, in no apparent distress Head exam: Present: atraumatic, normocephalic, normal inspection Eye exam: Present: normal appearance, PERRL, EOMI. Absent: scleral icterus, conjunctival injection, periorbital swelling ENT exam: Present: normal exam, normal oropharynx, mucous membranes moist Neck exam: Present: normal inspection, full ROM. Absent: tenderness, meningismus, lymphadenopathy Respiratory exam: Present: normal lung sounds bilaterally. Absent: respiratory distress, wheezes, rales, rhonchi, stridor Cardiovascular Exam: Present: regular rate, normal rhythm, normal heart sounds. Absent: systolic murmur, diastolic murmur, rubs, gallop, clicks Extremities exam: Present: other (Bilateral lower extremity strength equal bilaterally neurovascular intact there is no significant skin color change or change warmth noted there is tenderness to the left leg tenderness left hip) Neurological exam: Present: alert, reflexes normal. Absent: motor sensory deficit Skin exam: Present: warm, dry, intact, normal color. Absent: rash Course Vital Signs 07/10/21 07/10/21 06:54 07:21 Temperature 97.8 F 97.5 F L Pulse Rate 93 85 Respiratory 19 16 Rate Blood Pressure 132/85 119/83 O2 Sat by Pulse 100 Oximetry Medical Decision Making - Medical Decision Making COMORBID UNREMARKABLE. PATIENT DOES FEEL IMPROVED AT THIS TIME PATIENT DISCHARGED WITH ATARAX FOR HER PRURITUS STATES SYMPTOMS. RETURN PARAMETERS WERE DISCUSSED. - Lab Data Result diagrams: 07/10/21 07:19 07/10/21 07:19 Lab Results 07/10/21 07/10/21 Range/Units 07:19 07:19 WBC 8.9 (3.8-10.6) k/uL RBC 4.20 (3.80-5.40) m/uL Hgb 13.0 (11.4-16.0) gm/dL Hct 38.1 (34.0-46.0) % MCV 90.8 (80.0-100.0) fL MCH 30.9 (25.0-35.0) pg MCHC 34.0 (31.0-37.0) g/dL RDW 11.9 (11.5-15.5) % Plt Count 401 (150-450) k/uL MPV 6.6 Neutrophils % 48 % Lymphocytes % 44 % Monocytes % 5 % Eosinophils % 1 % Basophils % 1 % Neutrophils # 4.3 (1.3-7.7) k/uL Lymphocytes # 3.9 (1.0-4.8) k/uL Monocytes # 0.4 (0-1.0) k/uL Eosinophils # 0.1 (0-0.7) k/uL Basophils # 0.0 (0-0.2) k/uL Sodium 138 (137-145) mmol/L Potassium 3.7 (3.5-5.1) mmol/L Chloride 103 (98-107) mmol/L Carbon Dioxide 30 (22-30) mmol/L Anion Gap 5 mmol/L BUN 8 (7-17) mg/dL Creatinine 0.54 (0.52-1.04) mg/dL Est GFR (CKD-EPI)AfAm >90 (>60 ml/min/1.73 sqM) Est GFR (CKD-EPI)NonAf >90 (>60 ml/min/1.73 sqM) Glucose 95 (74-99) mg/dL Calcium 9.2 (8.4-10.2) mg/dL Total Bilirubin 0.3 (0.2-1.3) mg/dL AST 22 (14-36) U/L ALT 22 (4-34) U/L Alkaline Phosphatase 73 (38-126) U/L Total Protein 7.4 (6.3-8.2) g/dL Albumin 4.3 (3.5-5.0) g/dL Disposition Clinical Impression: Leg pain, Pruritus Disposition: HOME SELF-CARE Condition: Stable Instructions (If sedation given, give patient instructions): Leg Pain (ED) Additional Instructions: Please return to the Emergency Department if symptoms worsen or any other concerns. Prescriptions: hydrOXYzine HCL [Atarax] 25 mg PO TID PRN #15 tab PRN Reason: Itching Is patient prescribed a controlled substance at d/c from ED?: No Referrals: Tomasa Willard MD [Primary Care Provider] - 1-2 days Time of Disposition: 08:38
[2021-07-10 08:00] LABS: ALT 22 U/L (4-34); AST 22 U/L (14-36); African American GFR (CKD) >90 (>60 ml/min/1.73 sqM); Albumin 4.3 g/dL (3.5-5.0); Alkaline Phosphatase 73 U/L (38-126); Anion Gap 5 mmol/L; Blood Urea Nitrogen 8 mg/dL (7-17); Calcium 9.2 mg/dL (8.4-10.2); Carbon Dioxide 30 mmol/L (22-30); Chloride 103 mmol/L (98-107); Glucose 95 mg/dL (74-99); Non-African American GFR(CKD) >90 (>60 ml/min/1.73 sqM); Potassium 3.7 mmol/L (3.5-5.1); Sodium 138 mmol/L (137-145); Total Bilirubin 0.3 mg/dL (0.2-1.3); Total Protein 7.4 g/dL (6.3-8.2)
--- NOTE | 2021-07-10 08:29 | US ---
EXAMINATION TYPE: US venous doppler duplex LE LT DATE OF EXAM: 07/10/2021 8:19 AM COMPARISON: NONE CLINICAL HISTORY: pain. Left leg pain for 3 days SIDE PERFORMED: Left TECHNIQUE: The lower extremity deep venous system is examined utilizing real time linear array sonog felicia with graded compression, doppler sonography and color-flow sonography. VESSELS IMAGED: Common Femoral Vein Deep Femoral Vein Greater Saphenous Vein * Femoral Vein Popliteal Vein Small Saphenous Vein * Proximal Calf Veins (* superficial vessels) Left Leg: Negative for DVT Grayscale, color doppler, spectral doppler imaging performed of the deep veins of the left lower extr emity. There is normal flow, compressibility, vascular waveforms. IMPRESSION: No ultrasound evidence for acute DVT in the left lower extremity.
[2021-07-10 09:41] VITALS: BP 111/81; PULSE 93; RESP 12; TEMP 97.6
== END 2021-07-10 09:40 | disposition home or self-care (01) ==
LOC: EC 06:50
DX: M79.605 Pain in left leg (principal); L29.9 Pruritus, unspecified; E07.9 Disorder of thyroid, unspecified; F90.9 Attention-deficit hyperactivity disorder, unspecified type; F32.A Depression, unspecified; F17.200 Nicotine dependence, unspecified, uncomplicated; Z88.1 Allergy status to other antibiotic agents; Z88.5 Allergy status to narcotic agent; Z87.442 Personal history of urinary calculi
CPT/HCPCS: 99284; 96374; 96375; 36415; 80053; 85025; 93971; J1200; J1790

== ENCOUNTER → 2023-06-16 | Outpatient (CLI) | payer OTHER ==
--- NOTE | 2023-06-16 21:39 | MR ---
EXAMINATION TYPE: MR brain wo/w con DATE OF EXAM: 06/16/2023 9:03 PM CLINICAL INDICATION:Female, 33 years old with history of Poss stroke; [facility], In patient from [facility]. Poss ible stroke. Left extremity weakness. COMPARISON: Outside report 06/16/2023. TECHNIQUE: Multi planar, multi sequence imaging was performed through the brain including: T1, T2, In version recovery, susceptibility weighted imaging and gradient echo imaging and Diffusion weighted im aging. The patient was then given intravenous contrast and multi planar, T1 fat-saturation images wer e obtained. IV Contrast: 6.5 cc Gadavist FINDINGS: The christianson-white junctions, ventricular system, basal cisterns appear unremarkable. Diffusion-weighted imaging shows no evidence of restricted diffusion to suggest acute/subacute infarct. Intracranial ar terial flow voids are maintained. Midline structures show no abnormality. The susceptibility weighted images do not reveal any evidence for micro-hemorrhage. After administration of gadolinium, no abnor mal enhancement is seen. Visualized portions of the internal carotid arteries and vertebral arteries appear patent. The bone marrow signal is within normal limits. Paranasal sinuses and mastoid air cells: No significant paranasal sinus disease. Visualized orbits: Orbital contents are intact. C3-C4 disc osteophyte complex with mild spinal canal stenosis. IMPRESSION: 1. No evidence of intracranial mass, acute/subacute infarct, or abnormal enhancement. 2. C3-C4 disc osteophyte complex with at least mild spinal canal stenosis.
== END | disposition home or self-care (01) ==
LOC: RADMRIMAIN 21:30
DX: R29.818 Other symptoms and signs involving the nervous system (principal); M48.02 Spinal stenosis, cervical region; M25.78 Osteophyte, vertebrae; R53.1 Weakness
CPT/HCPCS: 70553; A9585